=== PATIENT | female | born 1985 | race American Indian/Alaskan Native ===

== ENCOUNTER 2018-11-20 14:36 | Emergency (ER) | payer OTHER ==
--- NOTE | 2018-11-20 14:45 | PDOC ---
History of Present Illness - General Stated Complaint: ABNORMAL EKG Time Seen by Provider: 11/20/18 14:44 - History of Present Illness Initial Comments: 11/20/18 14:45 Ms. Marroquin is a 32 yo female at 33 weeks gestation with no pmh who presents for evaluation of a brief instance of left forearm pain earlier today. Patient reports she had a strange twinge to left forearm lasting less than 30 seconds that resolved and has not occured again. She called PCP who directed her to go to urgent care - urgent care sent to ED for inverted t-waves in lead III on EKG. Patient was evaluated at L&D upstairs and cleared; sent back to ED for further evaluation. The patient denies chest pain, shortness of breath, headache and dizziness. Denies fever, chills, nausea, vomit, diarrhea and constipation. Denies dysuria, frequency, urgency and hematuria. Past History - Past Medical History Allergies/Adverse Reactions: Allergies Allergy/AdvReac Type Severity Reaction Status Date / Time No Known Allergies Allergy Unverified 11/20/18 14:52 Home Medications: Ambulatory Orders Pnv No.95/Ferrous Fum/Folic AC [ Caplet] 1 each PO DAILY 11/20/18 Review of Systems - Review of Systems Comments:: 11/20/18 14:45 GENERAL/CONSTITUTIONAL: No fever or chills. No weakness. HEAD, EYES, EARS, NOSE AND THROAT: No change in vision. No ear pain or discharge. No sore throat. CARDIOVASCULAR: No chest pain or shortness of breath RESPIRATORY: No cough, wheezing, or hemoptysis. GASTROINTESTINAL: No nausea, vomiting, diarrhea or constipation. GENITOURINARY: No dysuria, frequency, or change in urination. MUSCULOSKELETAL: +L forearm "twinge" as described. No other joint or muscle swelling or pain. No neck or back pain. SKIN: No rash NEUROLOGIC: No headache, vertigo, loss of consciousness, or change in strength/ sensation. ENDOCRINE: No increased thirst. No abnormal weight change HEMATOLOGIC/LYMPHATIC: No anemia, easy bleeding, or history of blood clots. ALLERGIC/IMMUNOLOGIC: No hives or skin allergy. *Physical Exam - Physical Exam Comments: 11/20/18 14:45 GENERAL: Awake, alert, and fully oriented, in no acute distress HEAD: No signs of trauma, normocephalic, atraumatic EYES: PERRLA, EOMI, sclera anicteric, conjunctiva clear ENT: Auricles normal inspection, hearing grossly normal, nares patent, oropharynx clear without exudates. Moist mucosa NECK: Normal ROM, supple, no lymphadenopathy, JVD, or masses LUNGS: No distress, speaks full sentences, clear to auscultation bilaterally HEART: Regular rate and rhythm, normal S1 and S2, no murmurs, rubs or gallops, peripheral pulses normal and equal bilaterally. ABDOMEN: +Gravid uterus. Soft, nontender, normoactive bowel sounds. No guarding , no rebound. No masses EXTREMITIES: Normal inspection, Normal range of motion, no edema. No clubbing or cyanosis. NEUROLOGICAL: Cranial nerves II through XII grossly intact. Normal speech, normal gait, no focal sensorimotor deficits SKIN: Warm, Dry, normal turgor, no rashes or lesions noted. ED Treatment Course - LABORATORY CBC & Chemistry Diagram: 11/20/18 15:10 11/20/18 15:10 Medical Decision Making - Medical Decision Making 11/20/18 15:56 Ms. Marroquin is a 32 yo female w/ pmh as described who presents for evaluation of transient left arm pain concerning for MSK vs. ACS. Patient extremely well appearing and symptoms have not returned. Bedside US performed in ED revealed no pericardial effusion w/ good contractility; no rv dilation or strain. FHR 136 , good movement. Normal Doppler bilateral lower extremities w/out DVTs. 11/20/18 16:01 EKG notable for sinus arrhythmia with short IL however otherwise normal EKG. 11/20/18 16:42 Discussed patient with [employer] who will evaluate in office tomorrow at previously scheduled appt. No concern for acute process at this time. Discharging. *DC/Admit/Observation/Transfer Diagnosis at time of Disposition: Forearm pain Qualifiers: Laterality: left Qualified Code(s): M79.632 - Pain in left forearm - Discharge Dispostion Disposition: HOME - Referrals Referrals: Yolanda Saldivar DO [Primary Care Provider] - - Patient Instructions Printed Discharge Instructions: DI for Arm Pain Additional Instructions: You were evaluated today in the emergency room for your arm pain. We performed EKG, ultrasound, and laboratory evaluation with no concerning findings. Please follow-up with [employer] tomorrow at regularly scheduled appointment as discussed. Return to ER if any fever, chills, shortness of breath, or other concerning symptoms - Post Discharge Activity
[2018-11-20 14:58] VITALS: TEMP 98.4; BMI 28.6
--- NOTE | 2018-11-20 15:11 | EKG ---
Test Reason : Blood Pressure : / mmHG Vent. Rate : 098 BPM Atrial Rate : 098 BPM P-R Int : 110 ms QRS Dur : 078 ms QT Int : 362 ms P-R-T Axes : 034 052 025 degrees QTc Int : 462 ms SINUS RHYTHM WITH SINUS ARRHYTHMIA WITH SHORT TN OTHERWISE NORMAL ECG NO PREVIOUS ECGS AVAILABLE Confirmed by SHAYLA KIRBY MD ([id number]) on 11/20/2018 3:11:09 PM Referred By: Confirmed By:SHAYLA KIRBY MD
[2018-11-20 15:19] LABS: BASO % 0.3 % (0-2.0); EOS % 1.5 % (0-4.5); HEMATOCRIT 32.3 % (32.4-45.2); HEMOGLOBIN 11.8 GM/dL (10.7-15.3); LYMPH % 13.2 % (8-40); MCH 34.8 pg (25.7-33.7); MCHC 36.5 g/dl (32.0-36.0); MEAN CELL VOLUME 95.3 fl (80-96); MEAN PLT VOLUME 9.2 fl (7.5-11.1); MONO % 5.7 % (3.8-10.2); NEUT % 79.3 % (42.8-82.8); PLATELET COUNT 156 K/MM3 (134-434); RBC 3.39 M/mm3 (3.60-5.2); RDW 12.9 % (11.6-15.6)
[2018-11-20 15:57] LABS: ALBUMIN 3.1 g/dl (3.4-5.0); ALK PHOS 87 U/L (45-117); ANION GAP 9 MMOL/L (8-16); BILIRUBIN,TOTAL 0.2 mg/dL (0.2-1); BLOOD UREA NITROGEN 7 mg/dL (7-18); CALCIUM 7.6 mg/dL (8.5-10.1); CHLORIDE 108 mmol/L (98-107); CO2 22 mmol/L (21-32); CREATININE 0.2 mg/dL (0.55-1.3); GLUCOSE,RANDOM 68 mg/dL (74-106); POTASSIUM 3.4 mmol/L (3.5-5.1); SGOT/AST 16 U/L (15-37); SGPT/ALT 15 U/L (13-61); SODIUM 138 mmol/L (136-145); TOT PROT 6.3 g/dl (6.4-8.2)
--- NOTE | 2018-11-20 16:52 | PDOC ---
Attending Attestation - Resident Resident Name: Jean ClaudecaroletutuReggie - ED Attending Attestation I have performed the following: I have examined & evaluated the patient, The case was reviewed & discussed with the resident, I agree w/resident's findings & plan, Exceptions are as noted - HPI HPI: 11/20/18 16:45 Ms Marroquin is a 32 yo F who is 33 weeks who presents to the ER for evaluation of left arm pain Pt was in her usual state of health until this morning when she noted Left forearm pain. No back pain No chest pain at all No shortness of breath No palpitations No weakness No abdominal pain No vaginal bleeding Symptoms lasted seconds and resolved Pt contacted farmer diversified crops who referred her to the urgent care Urgent care did EKG and sent her to the hospital Pt sent to the OB floor and was sent to the ER Pt is completely asymptomatic now - Physicial Exam PE: 11/20/18 16:47 GENERAL: The patient is in no acute distress. HEAD: Normal EYES: PERRLA, EOMI, sclera anicteric, conjunctiva clear. ENT: Ears normal, nares patent, oropharynx clear without exudates. Moist mucous membranes. NECK: Normal range of motion, supple without JVD LUNGS: Breath sounds equal, clear to auscultation bilaterally. No wheezes, and no crackles. HEART:Regular rate and rhythm, normal S1 and S2 without murmur, rub or gallop. ABDOMEN: Gravid abdomen, no abdominal tenderness to palpation, No guarding, no rebound. EXTREMITIES: Normal range of motion, no edema. Both legs same size NEUROLOGICAL: Cranial nerves II through XII grossly intact. Normal speech. No focal neurological deficits. SKIN: Warm, Dry, normal turgor, no rashes or lesions noted. - Medical Decision Making 32 yo F presenting to the ER with left forarm pain which was brief and self resolving No chest pain at all No upper back pain No shortness of breath No leg swelling or pain No recent travel 11/20/18 16:46 EKG - NSR rate of 98 bpm, axis nml, intervals nml, no st elevations or depressions, t wave inversion III otherwise t waves upright 11/20/18 16:47 Laboratory Tests 11/20/18 11/20/18 15:10 15:10 WBC 11.0 H Hgb 11.8 Hct 32.3 L Plt Count 156 Neutrophils % 79.3 Lymphocytes % 13.2 BUN 7 Creatinine 0.2 L Creatine Kinase 62 Troponin I < 0.02 No ME I doubt PE given no tachycardia, no hypoxia, no chest pain, no high risk EKG features Pt s/p duplex - no DVT Pt s/p bedside ECHO - no right heart strain, no pericardial effusion, no right ventricular enlargement Call placed to Dr. Saldivar All results reviewed with patient She is in agreement with patient being discharged to home Follow up tomorrow in the office 11/20/18 16:52 I have had a long conversation with this patient She understands the concern that everyone has for Pulmonary embolism Pt understands that a PE would be fatal She does not want a CTA Will ask pt to return to the ER for any other concerns or complaints
[2018-11-20 16:55] VITALS: BP 117/61; PULSE 88
== END 2018-11-20 16:52 | disposition home or self-care (01) ==
LOC: JER 14:36
DX: O26.893 Other specified pregnancy related conditions, third trimester (principal); Z3A.33 33 weeks gestation of pregnancy; M79.632 Pain in left forearm
CPT/HCPCS: 36415; 80053; 82550; 84484; 85025; 93005; 93010; 99283-25

== ENCOUNTER 2019-01-07 20:20 | Inpatient (IN) | payer OTHER ==
[2019-01-07] MEDS ORDERED: PROMETHAZINE HCL 25 MG/1 ML VIAL IVPUSH ONE (21:06)
[2019-01-07] MEDS ORDERED: BUTORPHANOL TARTRATE 1 MG/ML VIAL IVPB ONE (21:06)
[2019-01-07] MEDS ORDERED: DINOPROSTONE 10 MG VAGINAL SUPPOSITORY VG ONE (21:07)
--- NOTE | 2019-01-07 21:07 | HP ---
Past Medical History - Admission Chief Complaint: Pt here for labor induction. History of Present Illness: 33 y/o P0 female with SIUP at 40.4 weeks. Here for induction of labor. uncomplicated. Recent urinary tract infection, treated. GBS negative , HIV negative, Rubella immune, HepBsag negative. History Source: Patient - Past Medical History Cardiovascular: No: AFIB, HTN Pulmonary: No: Asthma Gastrointestinal: No: GERD Hepatobiliary: No: Hepatitis B, Hepatitis C ...: 1 ...Para: 0 ...Term: 0 ...: 0 ...Spon : 0 ...Induced : 0 Psych: No: Anxiety, Bipolar, Depression Endocrine: No: Diabetes Mellitus, Hyperthyroidism - Past Surgical History Past Surgical History: Yes: None Hx Myomectomy: No Hx Transabdominal Cerclage: No - Smoking History Smoking history: Never smoked - Alcohol/Substance Use Hx Alcohol Use: No - Social History Usual Living Arrangement: Yes: Alone History of Recent Travel: No Home Medications - Allergies Allergies/Adverse Reactions: Allergies Allergy/AdvReac Type Severity Reaction Status Date / Time No Known Allergies Allergy Unverified 11/20/18 14:52 - Home Medications Home Medications: Ambulatory Orders Pnv No.95/Ferrous Fum/Folic AC [ Caplet] 1 each PO DAILY 11/20/18 Review of Systems - Review of Systems Constitutional: reports: No Symptoms Eyes: reports: No Symptoms HENT: reports: No Symptoms Neck: reports: No Symptoms Cardiovascular: reports: No Symptoms Respiratory: reports: No Symptoms Gastrointestinal: reports: No Symptoms Genitourinary: reports: No Symptoms Breasts: reports: No Symptoms Reported Musculoskeletal: reports: No Symptoms Integumentary: reports: No Symptoms Neurological: reports: No Symptoms Endocrine: reports: No Symptoms Hematology/Lymphatic: reports: No Symptoms Psychiatric: reports: No Symptoms Physical Exam - Maternity Constitutional: Yes: Well Nourished, No Distress, Calm Eyes: Yes: WNL, Conjunctiva Clear, EOM Intact HENT: Yes: Atraumatic, Normocephalic Neck: Yes: Supple Cardiovascular: Yes: Regular Rate and Rhythm Lungs: Clear to auscultation Breast(s): Yes: WNL - Abdominal Exam/OB Number of Fetuses: Single Presentation: Vertex Contractions: No Category: I Accelerations: Uniform - Vaginal Exam/OB Vaginal Bleediing: No Dilatation (cm): 1 Effacement (%): 50 Amniotic Membrane Status: Intact Presentation: Vertex/Position Station: -3 - Physical Exam Psychiatric: Yes: Alert, Oriented Hemorrhage Risk Assessment - Risk Factors Medium Risk Factors: Yes: None High Risk Factors: Yes: None Risk Score: 1 Risk Level: Medium Risk Problem List - Problems (1) Term Code(s): Z34.80 - ENCOUNTER FOR SUPRVSN OF NORMAL , UNSP TRIMESTER Assessment/Plan 33 y/o with SIUP at 40.4 weeks for IOL cervidil placed GBS negative
[2019-01-07] MEDS ORDERED: DEXTROSE 5%-LACTATED RINGERS 1,000 ML IV SCH (21:15)
[2019-01-07 22:05] LABS: BASO % 0.5 % (0-2.0); EOS % 1.3 % (0-4.5); HEMOGLOBIN 12.4 GM/dL (10.7-15.3); LYMPH % 17.7 % (8-40); MCH 33.5 pg (25.7-33.7); MCHC 35.6 g/dl (32.0-36.0); MEAN PLT VOLUME 10.2 fl (7.5-11.1); MONO % 7.7 % (3.8-10.2); NEUT % 72.8 % (42.8-82.8); PLATELET COUNT 181 K/MM3 (134-434); RBC 3.72 M/mm3 (3.60-5.2); RDW 13.7 % (11.6-15.6)
[2019-01-07 22:19] LABS: INR 0.9 (0.83-1.09); PROTHROMBIN TIME (PATIENT) 10.6 SEC (9.7-13.0)
[2019-01-07 22:22] LABS: ACTIVATED PTT 26.6 SECONDS (25.2-36.5)
[2019-01-07 22:29] LABS: ANION GAP 9 MMOL/L (8-16); BLOOD UREA NITROGEN 8 mg/dL (7-18); CALCIUM 8.7 mg/dL (8.5-10.1); CHLORIDE 108 mmol/L (98-107); CO2 22 mmol/L (21-32); CREATININE 0.4 mg/dL (0.55-1.3); GLUCOSE,RANDOM 79 mg/dL (74-106); POTASSIUM 3.9 mmol/L (3.5-5.1); SODIUM 139 mmol/L (136-145)
[2019-01-07 23:54] VITALS: BMI 30.2
[2019-01-08] MEDS ORDERED: PROMETHAZINE HCL 25 MG/1 ML VIAL ONE (01:39)
[2019-01-08] MEDS ORDERED: BUTORPHANOL TARTRATE 1 MG/ML VIAL ONE ×2 (01:39)
--- NOTE | 2019-01-08 06:49 | PN ---
Ante-Partal Exam - Subjective Subjective: Pt s/p stadol/phenergan, having pain with contractions. Vital Signs: Vital Signs Temperature 98.7 F 01/08/19 01:00 Pulse Rate 74 01/08/19 01:00 Respiratory Rate 18 01/08/19 01:00 Blood Pressure 133/77 01/08/19 01:00 O2 Sat by Pulse Oximetry (%) Bleeding: No Headache: No Visual changes: No Right upper quadrant pain: No - Contractions Contractions: Yes Regularity: Irregular Intensity: Mild/Mod - Exam during Labor Heart Rate: 150 Variability: Moderate Category: I Monitor Decelerations: None Exam: Vaginal Dilatation (cm): 1.5 Effacement (%): 50 Amniotic Membrane Status: Intact Presentation: Vertex Station: -3 - Intrapartum Hemorrhage Risk Medium Risk Factors: None High Risk Factors: None Risk Score: 0 Risk Level: Low Risk - Assessment/Plan Assessment/Plan: to remove cervidil at 9 am then start pitocin epidural prn
[2019-01-08] MEDS ORDERED: OXYTOCIN 30 UNITS in 0.9% NS 30 UNIT/500 ML INFUS.BAG IVPB SCH (09:00)
--- NOTE | 2019-01-08 09:00 | LDN ---
Oxytocin Pre-Use Checklist Date and Time completed: 01/08/19 0859 Physician order on chart: Yes Current history and physical on chart: Yes Indication for induction is documented: Yes record on chart: Yes Pelvis is documented by physician to be clinically adequate: Yes Estimated weight within past week (clinical or sono): Less than 4500 grams in a non-diabetic woman Gestational age is documented: Yes Consent signed: Yes Physician with privileges: is aware of the induction, is readily available, is documented in the medical record Status of the cervix is assessed and documented: Yes Presentation is assessed and documented: Yes Assessment completed and includes: A minimum of 30 minutes of monitoring is required prior to start, At least 2 accelerations (15bpm x 15sec) in 30 minutes are present, Adequate variability, No late decelerations in past 30 minutes
[2019-01-08] MEDS ORDERED: FENTANYL/BUPIVACAINE/NS/PF - PCEA - 50 ML DISP.SYRIN EP ONE ×4 (09:45→21:14)
[2019-01-08] MEDS ORDERED: OXYTOCIN 30 UNITS in 0.9% NS 30 UNIT/500 ML INFUS.BAG IVPB ONE (10:18)
[2019-01-08] MEDS: PRENATAL VITAMINS W/ FOLIC ACID TABLET (FP) PO SCH (10:28)
[2019-01-08] MEDS ORDERED: FENTANYL/BUPIVACAINE/NS/PF - PCEA - 50 ML DISP.SYRIN EP SCH (10:45)
[2019-01-08] MEDS ORDERED: TUBERCULIN PPD 5 TU/0.1ML SYRINGE (IN PATIENT USE ONLY) ID ONE (12:59)
[2019-01-08] MEDS ORDERED: ELECTROLYTE-148 SOLN 1,000 ML IV SCH (13:00)
--- NOTE | 2019-01-08 13:02 | PN ---
Ante-Partal Exam - Subjective Subjective: pt without complaints comfortable with epidural Vital Signs: Vital Signs Temperature 98.8 F 01/08/19 12:00 Pulse Rate 79 01/08/19 10:30 Respiratory Rate 18 01/08/19 10:30 Blood Pressure 134/85 01/08/19 10:30 O2 Sat by Pulse Oximetry (%) 97 01/08/19 10:30 Bleeding: Yes Bleeding Description: Mild Headache: No Visual changes: No Right upper quadrant pain: No - Contractions Contractions: Yes Regularity: Regular Intensity: Mod/Strong - Exam during Labor Heart Rate: 145 Variability: Moderate Category: I Monitor Accelerations: Present Monitor Decelerations: None Exam: Vaginal Dilatation (cm): 3 Effacement (%): 70 Amniotic Membrane Status: Ruptured (bulging on exam, AROM for clear (blood tinged) fluid) Amniotic Fluid: Clear Presentation: Vertex Station: -2 - Intrapartum Hemorrhage Risk Medium Risk Factors: None High Risk Factors: None Risk Score: 0 Risk Level: Low Risk - Assessment/Plan Assessment/Plan: 33 y/o with SIUP at 40.5 weeks, IOL s/p cervidil on pitocin s/p AROM continue active management
[2019-01-08] MEDS ORDERED: LIDO 2%/EPI 1:200000 PRESRVFRE (20 ML SDVIAL) ONE (17:31)
--- NOTE | 2019-01-08 20:45 | PN ---
Ante-Partal Exam - Subjective Subjective: Pt uncomfortable. Vital Signs: Vital Signs Temperature 98.6 F 01/08/19 20:00 Pulse Rate 106 H 01/08/19 18:45 Respiratory Rate 18 01/08/19 18:45 Blood Pressure 142/72 01/08/19 18:45 O2 Sat by Pulse Oximetry (%) 98 01/08/19 18:45 Bleeding: Yes Bleeding Description: Mild Headache: No Visual changes: No Right upper quadrant pain: No - Contractions Contractions: Yes Regularity: Regular Intensity: Mod/Strong - Exam during Labor Heart Rate: 160 Variability: Minimal Category: II Exam: Vaginal Dilatation (cm): 6.5 Effacement (%): 90 Amniotic Membrane Status: Ruptured Presentation: Vertex Station: -2 - Assessment/Plan Assessment/Plan: top off by anesthesia given now continue pitocin making progress recheck 1 hour
[2019-01-08] MEDS ORDERED: OXYTOCIN 20 UNITS in 0.9% NS 20 UNIT/1,000 ML INFUS.BAG IV ONE (22:35)
[2019-01-08] MEDS ORDERED: BISACODYL 10 MG SUPP.RECT RC PRN (22:56)
[2019-01-08] MEDS ORDERED: METHYLERGONOVINE MALEATE 0.2 MG/1 ML AMP IM PRN (22:56)
[2019-01-08] MEDS ORDERED: BENZOCAINE 28 GM HEMORRHOIDAL OINTMENT TP PRN (22:56)
[2019-01-08] MEDS ORDERED: BENZOCAINE 20% 57 GM BOTTLE TP PRN (22:56)
[2019-01-08] MEDS ORDERED: WITCH HAZEL 50% (TUCKS) 40 PAD/JAR PAD TP PRN (22:56)
[2019-01-08] MEDS ORDERED: oxyCODONE HCL 5 MG TABLET PO PRN (22:56)
--- NOTE | 2019-01-08 22:56 | PN ---
Delivery - Delivery Vaginal Delivery: No Problems Type of Anesthesia: Epidural Episiotomy/Laceration: 2nd degree (vaginal , repaired with 2-0 chromic and 4-0 vicryl) Delivery, Single - Stages of Labor Date of Delivery: 01/08/19 Time of Delivery: 22:13 Date Placenta Delivered: 01/08/19 Time Placenta Delivered: 22:29 Placenta: Yes: Spontaneous - Condition of Infant Vehicle Window Tinter/Electrician Supervisor Present: No Gender: Female Position: OA - 5 Minutes Total Score: 9 1 Minute Total Score: 8 - Feeding Plan Initial Plan: Elected not to breastfeed exclusively throughout hospitalization Remarks - Remarks Remarks: Uncomplicated of baby girl form direct OA position anterior shoulder (right) and posterior shoulder delivered with ease along with remainder of cord clamped and cut placenta delivered with 3VC and in tact 2nd degree vaginal laceration repaired with 2-0 chromic and 4-0 vicryl in usual fashion mom stable baby to well baby nursery sponge and needle count correct after delivery
[2019-01-08] MEDS ORDERED: OXYTOCIN 20 UNITS in 0.9% NS 20 UNIT/1,000 ML INFUS.BAG IV SCH (23:00)
[2019-01-09] MEDS: IBUPROFEN 600 MG TABLET (FP) PO PRN ×2 (02:21→15:07)
[2019-01-09] MEDS: ACETAMINOPHEN 325 MG TABLET (FP) PO PRN ×2 (02:22→15:06)
--- NOTE | 2019-01-09 06:36 | PN ---
Post Progress Note - Subjective Subjective: Pt seen/evaluated. Doing well. Pain controlled. Tolerating diet. Ambulating , voiding. Type of Delivery: Vital Signs: Vital Signs Temperature 98.6 F 01/09/19 02:48 Pulse Rate 97 H 01/09/19 02:48 Respiratory Rate 20 01/09/19 02:48 Blood Pressure 126/76 01/09/19 02:48 O2 Sat by Pulse Oximetry (%) 99 01/08/19 23:30 Breast Exam: Yes: Soft Uterus: Yes: Fundus Firm Abdomen/GI: Yes: Abdomen soft Lochia: Yes: Rubra Lochia, amount: Small Extremities: Yes: Calves non-tender, Edema (trace B/L LE edema, nonpitting) Perineum: Yes: Laceration (vaginal laceration well approximated) Activity: Ambulating - Labs Labs: CBC WBC 11.0 K/mm3 (4.0-10.0) H 01/07/19 21:50 RBC 3.72 M/mm3 (3.60-5.2) 01/07/19 21:50 Hgb 12.4 GM/dL (10.7-15.3) 01/07/19 21:50 Hct 35.0 % (32.4-45.2) 01/07/19 21:50 MCV 94.0 fl (80-96) 01/07/19 21:50 MCH 33.5 pg (25.7-33.7) 01/07/19 21:50 MCHC 35.6 g/dl (32.0-36.0) 01/07/19 21:50 RDW 13.7 % (11.6-15.6) 01/07/19 21:50 Plt Count 181 K/MM3 (134-434) 01/07/19 21:50 MPV 10.2 fl (7.5-11.1) D 01/07/19 21:50 Absolute Neuts (auto) 8.0 K/mm3 (1.5-8.0) 01/07/19 21:50 Neutrophils % 72.8 % (42.8-82.8) 01/07/19 21:50 Lymphocytes % 17.7 % (8-40) D 01/07/19 21:50 Monocytes % 7.7 % (3.8-10.2) 01/07/19 21:50 Eosinophils % 1.3 % (0-4.5) 01/07/19 21:50 Basophils % 0.5 % (0-2.0) 01/07/19 21:50 Nucleated RBC % 0 % (0-0) 01/07/19 21:50 Problem List - Problems (1) Term Code(s): Z34.80 - ENCOUNTER FOR SUPRVSN OF NORMAL , UNSP TRIMESTER (2) Vaginal delivery Code(s): O80 - ENCOUNTER FOR FULL-TERM UNCOMPLICATED DELIVERY Assessment/Plan 33 y/o PPD#1 s/p normal AFVSS Regular diet PO pain meds encourage ambulation routine care
[2019-01-09 07:57] LABS: BASO % 0.1 % (0-2.0); HEMATOCRIT 27.9 % (32.4-45.2); HEMOGLOBIN 9.6 GM/dL (10.7-15.3); LYMPH % 5.7 % (8-40); MCH 32.7 pg (25.7-33.7); MCHC 34.3 g/dl (32.0-36.0); MEAN CELL VOLUME 95.4 fl (80-96); MEAN PLT VOLUME 10.1 fl (7.5-11.1); MONO % 6.2 % (3.8-10.2); PLATELET COUNT 153 K/MM3 (134-434); RBC 2.93 M/mm3 (3.60-5.2); RDW 13.8 % (11.6-15.6); WHITE BLOOD COUNT 22.1 K/mm3 (4.0-10.0)
[2019-01-09] MEDS: PRENATAL VITAMINS W/ FOLIC ACID TABLET (FP) PO SCH (09:53)
[2019-01-09 10:21] LABS: ANISOCYTOSIS 0; MACROCYTOSIS 0; PLATELET ESTIMATE NORMAL
[2019-01-09] MEDS: AMOX TR/POT CLAV 500MG/125MG TABLETS (FP) PO SCH (17:19)
[2019-01-09] MEDS ORDERED: SENNOSIDES/DOCUSATE COMBO (SENNA PLUS) TABLET (UD) PO PRN (22:00)
[2019-01-10] MEDS: ACETAMINOPHEN 325 MG TABLET (FP) PO PRN (06:58)
[2019-01-10] MEDS: IBUPROFEN 600 MG TABLET (FP) PO PRN (06:58)
[2019-01-10] MEDS: AMOX TR/POT CLAV 500MG/125MG TABLETS (FP) PO SCH ×2 (08:49→13:03)
--- NOTE | 2019-01-10 08:52 | DS ---
Physical Exam-BUDGET TECHNICIAN Vital Signs: Vital Signs Temperature 97.5 F L 01/09/19 22:00 Pulse Rate 94 H 01/09/19 22:00 Respiratory Rate 20 01/09/19 22:00 Blood Pressure 136/77 01/09/19 22:00 O2 Sat by Pulse Oximetry (%) 99 01/08/19 23:30 Constitutional: Yes: Well Nourished, No Distress Gastrointestinal: Yes: WNL, Normal Bowel Sounds, Soft ....Post : Yes: Uterus firm, Uterus non-tender Breast(s): Yes: WNL Musculoskeletal: Yes: WNL Extremities: Yes: WNL Edema: No Neurological: Yes: WNL, Alert, Oriented Labs: CBC, BMP 01/09/19 06:15 01/07/19 21:50 Delivery - Delivery Vaginal Delivery: No Problems Type of Anesthesia: Epidural Episiotomy/Laceration: 2nd degree (vaginal , repaired with 2-0 chromic and 4-0 vicryl) EBL (cc): 300 Delivery, Single - Stages of Labor Date 1st Stage Initiatied: 01/08/19 Time 1st Stage Initiated: 10:00 Date 2nd Stage Initiated: 01/08/19 Time 2nd Stage Initiated: 21:30 Date of Delivery: 01/08/19 Time of Delivery: 22:13 Time Placenta Delivered: 22:29 Placenta: Yes: Spontaneous - Condition of Infant Hook Loader/Monument Setter Present: No Gender: Female Weight: 7 lb 7 oz Position: OA Total Hours ROM (Hrs/Mins): 9H 23M - 5 Minutes Total Score: 9 1 Minute Total Score: 8 - Feeding Plan Initial Plan: Elected not to breastfeed exclusively throughout hospitalization Discharge Summary Reason For Visit: LABOR INDUCTION Current Active Problems Term (Acute) Vaginal delivery (Acute) Procedures: Principal: Normal vaginal delivery Condition: Good - Instructions Diet, Activity, Other Instructions: Physical activity Resume your normal everyday activity as tolerated no heavy lifting or exercise until seen by your surgeon. You may walk unlimited myron of and climb stairs. You may resume driving the car when you feel safe and comfortable behind the wheel. No sexual activity as instructed. Wound care If you have a bandage, leave it on, and keep dry for 48-72 hours. After that time discard the outer bandage. If they are tapes on the skin under the out of bandage leave them in place. They will peel off in the next 7 to 10 days. Do Not Peel them off. You may shower the day after surgery. If there are tapes present on the skin, you may shower over them. Diet There are no dietary restrictions. Eat healthy, high-fiber foods. Drink 6 to 8 glasses of liquid each day. This will assist in keeping your bowels are regular. Pain management You may take Tylenol or acetaminophen or Ibuprofen (for example, Motrin, Advil etc.) from my pain prescription medication is ordered should be taken as prescribed for moderate to severe pain. Call MD for any of the following: Severe pain not relieved by medication Fever of 101 or higher Excessive bleeding or drainage on dressing Inability to urinate Disposition: HOME - Home Medications Comprehensive Discharge Medication List: Ambulatory Orders Pnv No.95/Ferrous Fum/Folic AC [ Caplet] 1 each PO DAILY 11/20/18
[2019-01-10] MEDS: PRENATAL VITAMINS W/ FOLIC ACID TABLET (FP) PO SCH (10:17)
[2019-01-10 10:20] LABS: BASO % 0.2 % (0-2.0); EOS % 1.2 % (0-4.5); HEMATOCRIT 27.7 % (32.4-45.2); HEMOGLOBIN 9.8 GM/dL (10.7-15.3); LYMPH % 10.2 % (8-40); MCH 33.8 pg (25.7-33.7); MCHC 35.5 g/dl (32.0-36.0); MEAN CELL VOLUME 95.2 fl (80-96); MEAN PLT VOLUME 9.5 fl (7.5-11.1); MONO % 6.4 % (3.8-10.2); PLATELET COUNT 163 K/MM3 (134-434); RBC 2.91 M/mm3 (3.60-5.2); RDW 13.6 % (11.6-15.6); WHITE BLOOD COUNT 15.6 K/mm3 (4.0-10.0)
[2019-01-10 14:58] VITALS: BP 137/81; PULSE 85; TEMP 98.5
== END 2019-01-10 14:35 | disposition home or self-care (01) | DRG 560 ==
LOC: JLDR 20:20 → J3W 01-09 02:12
PROVIDERS: ADMIT Obstetrics & Gynecology; ATTEND Obstetrics & Gynecology
PROC: 0KQM0ZZ Repair Perineum Muscle, Open Approach (ICD-10-PCS; principal; 2019-01-08)
PROC: 10E0XZZ Delivery of Products of Conception, External Approach (ICD-10-PCS; 2019-01-08)
DX: O48.0 Post-term pregnancy (principal); Z3A.40 40 weeks gestation of pregnancy; O70.1 Second degree perineal laceration during delivery; Z37.0 Single live birth
CPT/HCPCS: 36415; 59409; 80048; 85025; 85610; 85730; 86593; 86850; 86900; 86901